=== PATIENT | female | born 1970 | race Two or more races ===

== ENCOUNTER 2021-07-26 10:15 | Emergency (ER) | payer MEDICAID, OTHER ==
[~2021-07-26] VITALS: Ht 162.6 cm; Wt 73.5 kg
[2021-07-26] MEDS ORDERED: ACETAMINOPHEN 500 MG TAB PO ONE (11:45)
[2021-07-26 11:49] VITALS: BP 127/70
[2021-07-26] MEDS ORDERED: METH750T22 PO (12:41)
[2021-07-26] MEDS ORDERED: IBUP800T27 PO (12:41)
== END 2021-07-26 13:02 | disposition home or self-care (01) ==
LOC: ER 10:15 → EDBD 10:15 → ER 12:55
DX: S16.1XXA Strain of muscle, fascia and tendon at neck level, initial encounter (principal); S39.012A Strain of muscle, fascia and tendon of lower back, initial encounter; Z90.89 Acquired absence of other organs; V43.52XA Car driver injured in collision with other type car in traffic accident, initial encounter; Y93.89 Activity, other specified; Y92.410 Unspecified street and highway as the place of occurrence of the external cause; Y99.8 Other external cause status
CPT/HCPCS: 72040; 72100